=== PATIENT | male | born 1960 | race Caucasian/White ===

== ENCOUNTER 2016-07-06 09:41 | Outpatient (CLI) | payer OTHER ==
--- NOTE | 2016-07-06 11:36 | RAD ---
PA AND LATERAL CHEST: Date: 07-06-16 History: Cough. FINDINGS: Small bilateral pleural effusions. Lungs are hyperexpanded and there does appear to be flattening o f the hemidiaphragms suggesting COPD. There are increased linear densities seen within the ==== rig ht lung base which may actually represent scarring although infectious process cannot be excluded. Also, linear densities are seen at the lateral aspect left mid lung zone, also probably related to s carring. Cardiac silhouette and pulmonary vasculature are within normal limits. Osseous structures are intac t. IMPRESSION: 1. Small bilateral pleural effusions and associated atelectasis. 2. Increased linear densities in the midlung zones and at each lung base, greater on the right, whi ch probably represents chronic lung changes and scarring. Comparison with prior studies is recommen ded if available. If prior studies are not available for comparison, follow up evaluation is sugges giselle. POS: [facility]
== END 2016-07-06 09:42 | disposition home or self-care (01) ==
LOC: MADRAD 09:41
PROVIDERS: ATTEND Family Medicine
DX: R05 Cough (principal); J90 Pleural effusion, not elsewhere classified
CPT/HCPCS: 71020

== ENCOUNTER 2016-07-10 11:45 | Outpatient (CLI) | payer OTHER ==
[2016-07-10] MEDS ORDERED: Iopamidol 370 76% 100 ML VIAL ONE (13:01)
--- NOTE | 2016-07-10 16:26 | CT ---
CT OF THE THORAX WITH IV CONTRAST: Indication: Bilateral pleural effusion with a history of smoking. Comparison: 99 cc of Isovue. FINDINGS: As seen on the comparison chest radiograph dated 07-06-16 there are small bilateral pleural effusions . There is bibasilar atelectasis. There are scattered centrilobular and paracentral emphysema invo lving both lungs. No pathologically enlarged lymph node is seen within the mediastinum, hilar or ax illary region. No suspicious pulmonary nodule is identified. There is an indeterminate hyperdense exophytic lesion off the right mid right kidney measuring 1.6 cm. There is a 3.0 cm cyst involving the superior pole of the left kidney. There are small hypodensities involving the left kidney that cannot be further characterized. There are tiny hyperdensities within the right hepatic lobe that c annot be further characterized. No acute osseous abnormality is evident. IMPRESSION: 1. Nonspecific small bilateral pleural effusions and bibasilar atelectasis. 2. Moderate emphysema. 3. Indeterminate hyperdense lesion involving the lateral margin of the right kidney measuring 1.6 c m. Recommend a follow up ultrasound for additional characterization. 4. Right renal cyst. 5. Hepatic hypodensities too small to characterize. POS: [facility]
== END 2016-07-10 11:46 | disposition home or self-care (01) ==
LOC: MADCT 11:45
PROVIDERS: ATTEND Family Medicine
DX: J90 Pleural effusion, not elsewhere classified (principal); J98.11 Atelectasis; J43.9 Emphysema, unspecified; N28.1 Cyst of kidney, acquired
CPT/HCPCS: 71260

== ENCOUNTER 2016-07-25 08:02 | Outpatient (CLI) | payer OTHER ==
--- NOTE | 2016-07-25 09:03 | ULT ---
RENAL ULTRASOUND: Indication: History of renal cyst seen incidentally on CT scan dated 07-10-16. FINDINGS: The hyperdense lesion seen exophytically off the right mid kidney corresponds to a proteinaceous cys t measuring 1.1 cm. There is a larger 3 mm cyst within the superior pole of the right kidney. Ther e is a small 1.4 cm cyst seen within the left mid kidney. The right kidney measures 11.4 x 3.8 x 4.8 cm. Left kidney measures 10.4 x 4.1 x 4.3 cm. Visualized bladder is unremarkable appearing. IMPRESSION: 1. The hyperdense lesion seen exophytically off the lateral margin of the right mid kidney on the c omparison CT dated 07-10-16 from [facility] corresponds to proteinaceous cyst. There is a large simple cyst involving the superior pole of the right kidney. There is simple cyst seen wit hin the left mid kidney. 2. No solid renal lesion demonstrated. No hydronephrosis seen. POS: [facility]
== END 2016-07-25 08:03 | disposition home or self-care (01) ==
LOC: MADULT 08:02
PROVIDERS: ATTEND Family Medicine
DX: N28.1 Cyst of kidney, acquired (principal)
CPT/HCPCS: 76770

== ENCOUNTER 2017-05-05 10:14 | Emergency (ER) | payer OTHER ==
[2017-05-05] MEDS ORDERED: Amoxicillin/Potassium Clav 875 MG TAB ONE (10:43)
[2017-05-05] MEDS ORDERED: Tobramycin Sulfate 0.3% Ophth Susp 5 ml Bottle ONE (10:43)
== END 2017-05-05 11:05 | disposition home or self-care (01) ==
LOC: MADERS 10:14
DX: L03.213 Periorbital cellulitis (principal); F17.210 Nicotine dependence, cigarettes, uncomplicated
CPT/HCPCS: 99282

== ENCOUNTER 2018-09-22 20:38 | Emergency (ER) | payer OTHER ==
[~2018-09-22 20:38] MED LIST: Sodium Chloride Irrig Solution 250 ML BOT ONE
[2018-09-22] MEDS ORDERED: Lidocaine 2% w/Epinephrine 1:200K 20 ML VIAL ONE (20:49)
== END 2018-09-22 21:10 | disposition home or self-care (01) ==
LOC: MADERS 20:38
DX: S01.01XA Laceration without foreign body of scalp, initial encounter (principal); F17.210 Nicotine dependence, cigarettes, uncomplicated; W01.0XXA Fall on same level from slipping, tripping and stumbling without subsequent striking against object, initial encounter
CPT/HCPCS: 12002

== ENCOUNTER 2019-05-17 00:16 | Emergency (ER) | payer BC, OTHER, SELFPAY ==
[2019-05-17 01:27] LABS: #Basophils 0.2 thou/uL (0.0-0.2); #Eosinphils 0.2 thou/uL (0.0-0.7); #Lymphocytes 2.1 thou/uL (1.20-3.40); #Monocytes 0.7 thou/uL (0.11-0.59); #Neutrophils 7.9 thou/uL (1.40-6.50); %Basophils 1.4 % (0.0-1.0); %Lymphocytes 19.3 % (21.0-51.0); %Monocytes 6.2 % (0.0-10.0); %Neutrophils 71.2 % (42.0-75.0); Hemoglobin 15.4 g/dL (14.0-18.0); Mean Corpuscular HGB CONC 31.2 g/dL (32.0-36.0); Mean Corpuscular Hemoglobin 31.1 pg (27.0-31.0); Mean Corpuscular Volume 99.7 fL (78.0-98.0); Mean Platelet Volume 7.2 fL (7.4-10.4); Platelet Count 281 thou/uL (130-400); RBC Distribution Width 11.2 % (11.5-14.5); Red Blood Cell (RBC) Count 4.95 mill/uL (4.70-6.10); White Blood Cell (WBC) Count 11.1 thou/uL (4.8-10.8)
[2019-05-17 01:28] LABS: ALT (SGPT) 7 U/L (8-55); AST (SGOT) 13 U/L (5-34); Albumin 3.7 g/dL (3.5-5.0); Alkaline Phosphatase 54 U/L (40-110); BUN (Urea Nitrogen) 4 mg/dL (8.4-25.7); Bilirubin, Total 0.4 mg/dL (0.2-1.2); CK (CPK) 32 U/L (30-200); Calc. Creatinine Clearance 0 mL/min (70-130); Calcium 8.4 mg/dL (7.8-10.44); Carbon Dioxide 25 mmol/L (22-29); Estimated GFR-MDRD Greater than 90; Globulin 2.8 g/dL (2.4-3.5); Glucose 84 mg/dL (70-105); Protein, Total 6.5 g/dL (6.0-8.3)
[2019-05-17 01:40] LABS: Chloride 99 mmol/L (98-107); Potassium 3.7 mmol/L (3.5-5.1); Sodium 136 mmol/L (136-145)
[2019-05-17] MEDS ORDERED: methylPREDNISolone Acetate 40 mg/ml Vial ONE (01:58)
[2019-05-17] MEDS ORDERED: cefTRIAXone\\ROCEPHIN 1 GM VIAL ONE (01:59)
--- NOTE | 2019-05-17 07:58 | RAD ---
EXAM: Single view of the chest HISTORY: Dyspnea COMPARISON: 07/06/2016 FINDINGS: Single view of the chest shows a normal sized cardiomediastinal silhouette. Stable scarrin g is seen in the right thorax. There is no evidence of consolidation, mass, or pleural effusion. The bones are unremarkable. IMPRESSION: No evidence of acute cardiopulmonary disease
== END 2019-05-17 03:13 | disposition home or self-care (01) ==
LOC: MADERS 00:16
DX: J44.1 Chronic obstructive pulmonary disease with (acute) exacerbation (principal); F17.210 Nicotine dependence, cigarettes, uncomplicated
CPT/HCPCS: 36415; 71045; 80053; 82550; 83880; 84484; 85025; 94760; 96372; 96374; J0696; J1030; J7620